=== PATIENT | male | born 1990 | race Caucasian/White ===

== ENCOUNTER 2018-09-15 15:01 | Outpatient (CLI) | payer OTHER ==
--- NOTE | 2018-09-15 16:03 | Diagnostic Imaging Report ---
Indication: Right knee pain Technique: 2 views of the right knee Comparison: none Findings: Exam is somewhat limited, due to the availability of only 2 views. No acute fractures. No dislocations. The joint spaces are preserved Impression: Somewhat limited exam; negative
== END 2018-09-15 17:02 | disposition home or self-care (01) ==
LOC: RAD 15:01
DX: M25.561 Pain in right knee (principal)